=== PATIENT | male | born 1970 | race Caucasian/White ===

== ENCOUNTER → 2021-08-01 | Outpatient (CLI) | payer OTHER ==
[~2021-08-01] MED LIST: ALEV220C2 PO; ATOR40TA75 PO; CYAN500T14 PO; ESOM0.1C PO; MAGN400C PO; MULTCAP PO; NAPR500T2 PO; OMEP20CA3 PO; POTA550T2 PO; ROBA750T4 PO; TPS CREAM TOP; VITMTA PO
== END ==
LOC: M LABSMTC 09:30
PROVIDERS: ATTEND Anesthesiology
DX: Z01.818 Encounter for other preprocedural examination (principal); Z11.52 Encounter for screening for COVID-19

== ENCOUNTER 2021-08-06 07:23 | Day surgery (SDC) | payer OTHER ==
[~2021-08-06] VITALS: Ht 175.3 cm; Wt 82.5 kg
[~2021-08-06 07:23] MED LIST changes: +NS 1,000 ML IV ONE
[2021-08-06] MEDS ORDERED: LIDOCAINE 2% 100MG/5ML SDV (FOR ANES.) As Ordered ONE (09:27)
[2021-08-06] MEDS ORDERED: propofoL 200 MG/20 ML VIAL As Ordered ONE (09:27)
[2021-08-06 10:23] VITALS: BP 123/82
== END 2021-08-06 10:25 | disposition home or self-care (01) ==
LOC: M OPP 07:23
PROVIDERS: ATTEND Internal Medicine Gastroenterology
DX: K63.89 Other specified diseases of intestine (principal); K64.8 Other hemorrhoids; R10.84 Generalized abdominal pain; R12 Heartburn; Z79.899 Other long term (current) drug therapy; Z88.5 Allergy status to narcotic agent

== ENCOUNTER → 2021-09-09 | Outpatient (CLI) | payer OTHER ==
[~2021-09-09] MED LIST changes: -NS 1,000 ML IV ONE
== END ==
LOC: M WHC 09:27
PROVIDERS: ATTEND Physician Assistant Medical
DX: R10.10 Upper abdominal pain, unspecified (principal); Z90.49 Acquired absence of other specified parts of digestive tract